=== PATIENT | male | born 1980 | race Caucasian/White ===

== ENCOUNTER 2021-06-12 14:28 | Emergency (ER) | payer BC, MEDICAID ==
[~2021-06-12] VITALS: Ht 167.6 cm; Wt 122.0 kg
[~2021-06-12 14:28] MED LIST: DIAZ5TAB22 PO; LIRA0.6P SQ; LITH300C43 PO; METF500T PO; SERT25TA PO
[2021-06-12 14:56] LABS: BASOPHILS % (AUTO) 0.4 % (0-1); EOSINOPHILS # (AUTO) 0.3 X10'3 (0-0.9); EOSINOPHILS % (AUTO) 4.5 % (0-6); HEMOGLOBIN 15.6 g/dl (14.0-17.9); LYMPHOCYTES # (AUTO) 1.8 X10'3 (1.1-4.8); LYMPHOCYTES % (AUTO) 29.6 % (21-51); MEAN CORPUSCULAR HEMOGLOBIN 28.7 PG (27.0-31.0); MEAN CORPUSCULAR HGB CONC 34.6 g/dL (33.0-36.5); MEAN CORPUSCULAR VOLUME 82.9 FL (78-98); MONOCYTES # (AUTO) 0.7 X10'3 (0-0.9); MONOCYTES % (AUTO) 10.7 % (2-12); NEUTROPHILS # (AUTO) 3.4 X10'3 (1.8-7.7); NEUTROPHILS % (AUTO) 54.8 % (42-75); PLATELET COUNT 277 X10'3 (140-440); RED BLOOD COUNT 5.43 X10'6 (4.70-6.10); RED CELL DISTRIBUTION WIDTH 13.3 % (11.5-14.5); WHITE BLOOD COUNT 6.1 X10'3 (4.5-11.0)
[2021-06-12 15:16] LABS: ANION GAP 9 (8-16); BLOOD UREA NITROGEN 11 MG/DL (7-18); BUN/CREATININE RATIO 9.6 (5.4-32.0); CHLORIDE 101 MMOL/L (99-107); CREATININE 1.15 MG/DL (0.60-1.10); SODIUM 134 MMOL/L (135-145); TOTAL CARBON DIOXIDE 23.7 MMOL/L (24-32); eGFR 71 ML/MIN
[2021-06-12 15:17] LABS: ALANINE AMINOTRANSFERASE 95 U/L (12-78); ALBUMIN 3.8 G/DL (3.4-5.0); ALBUMIN/GLOBULIN RATIO 0.9 (1.1-1.5); ALKALINE PHOSPHATASE 70 IU/L (46-116); BILIRUBIN,TOTAL 0.5 MG/DL (0.1-1.0); CALCIUM 8.1 MG/DL (8.5-10.1); TOTAL PROTEIN 7.9 G/DL (6.4-8.2)
[2021-06-12 15:22] LABS: GLUCOSE 447 MG/DL (70-104); POTASSIUM 4.2 MMOL/L (3.5-5.1)
[2021-06-12 15:30] LABS: ASPARTATE AMINO TRANSFERASE 27 U/L (10-37)
[2021-06-12] MEDS ORDERED: PANT-47 PO (18:06)
[2021-06-12] MEDS ORDERED: MONT10TA21 PO (18:06)
[2021-06-12] MEDS ORDERED: DULA1.5P (18:06)
[2021-06-12] MEDS ORDERED: SITA1TAB6 PO (18:06)
[2021-06-12] MEDS ORDERED: FLUT1BLS4 (18:06)
[2021-06-12 19:40] VITALS: BP 132/92
== END 2021-06-12 19:42 | disposition home or self-care (01) ==
LOC: ER 14:28
DX: R07.89 Other chest pain (principal); J45.909 Unspecified asthma, uncomplicated; E11.9 Type 2 diabetes mellitus without complications; Z79.899 Other long term (current) drug therapy
CPT/HCPCS: 36415; 71045; 80053; 82948; 83880; 84484; 85025; 93005; 99285